=== PATIENT | male | born 1990 | race Caucasian/White ===

== ENCOUNTER 2021-01-12 14:39 | Inpatient (IN) | payer OTHER, SELFPAY ==
[2021-01-12] VITALS (20 sets, daily range): BP systolic 113–141; BP diastolic 65–98; PULSE 51–90; RESP 14–18; TEMP 36.3–37.1; O2SAT 96–100; BMI 25.8; BMI 26.0
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
[2021-01-12] MEDS: Naloxone 2 MG/2 ML Syringe IV (15:00)
--- NOTE | 2021-01-12 15:00 | EKG12_ITS ---
Test Reason : OD Blood Pressure : / mmHG Vent. Rate : 066 BPM Atrial Rate : 066 BPM P-R Int : 158 ms QRS Dur : 102 ms QT Int : 402 ms P-R-T Axes : 061 066 046 degrees QTc Int : 421 ms Normal sinus rhythm Normal ECG Confirmed by JACKELIN BHATIA, DIANA ([id number]), manuscript editor MU GALLOWAY ([id number]) on 01/16/2021 8:59:41 AM Referred By: EMMY/NEGAR Confirmed By:DIANA BENÍTEZ MD
[2021-01-12] MEDS: 0.9% Normal Saline 1,000 ML 999 ML IV (15:18)
[2021-01-12] MEDS: Succinylcholine Chloride 200 MG/10 ML Vial IV (15:20)
[2021-01-12] MEDS: Etomidate 20 MG/10 ML Vial IV (15:20)
[2021-01-12] MEDS: Propofol 10MG/Ml 1,000 MG/100 ML Bottle 4.8 MG CONT INF (15:27)
[2021-01-12] MEDS: fentaNYL 100 MCG/2 ML Ampul 50 MCG IV ×2 (15:34→15:49)
[2021-01-12 15:39] LABS: Absolute Lymphocyte Count 3.56 X10^3/uL (0.83-4.51); Absolute Neutrophil Count 4.7 X10^3/uL (2.0-7.7); Basophil# 0.06 X10^3/uL; Basophil% 0.6 % (0-1); Eosinophils% 2.1 % (0-5); Hematocrit 45.5 % (40-54); Hemoglobin 15.5 g/dL (13.0-16.5); Lymphocyte # 3.56 X10^3/ul (0.83-4.51); Lymphocyte % 36.9 % (19-41); Mean Corp Hgb Conc 34.1 g/dL (32-36); Mean Corpuscular Hgb 30.2 pg (27.0-32.0); Mean Corpuscular Volume 88.7 fL (80-94); Monocyte# 1.12 X10^3/uL; Monocyte% 11.6 % (0-10); NRBC Flagged by Analyzer 0 % (0-5); Neutrophil # 4.67 X10^3/uL (2.7-7.7); Neutrophil % 48.5 % (47-70); Platelet Count 232 K/mm3 (150-450); RBC Distribution Width SD 41.9 fl (35.1-43.9); Red Blood Count 5.13 M/mm3 (4.6-6.2); White Blood Count 9.6 K/mm3 (4.4-11.0)
--- NOTE | 2021-01-12 15:40 | RAD_ITS ---
INDICATION: s/p intubatiuon EXAMINATION/TECHNIQUE: X-RAY - XR Chest 1 View COMPARISON: None. FINDINGS: LIFE-SUPPORT AND LINES: 1. ET tube projects level of the clavicular heads, approximately 7 cm above the josefina. 2. NG tube extends below LEFT hemidiaphragm. 3. No pneumothorax. HEART AND VESSELS: The cardiac silhouette, pulmonary vasculature have normal appearance. No evidence of congestive failure. LUNGS AND PLEURAL SPACES: Lungs are clear. No focal infiltrate, consolidation or effusions. No evidence of pneumothorax. No pulmonary mass is noted. MEDIASTINUM AND HILAR REGIONS: No masses adenopathy noted. No areas of calcification. Visualized upper airway is normal in position. BONY ELEMENTS: No acute bony changes noted. RAD/Chest 1 View (Portable) IMPRESSION: 1. ET tube projects level of clavicular heads, and NG tube is in normal position at projecting below LEFT hemidiaphragm. 2. No pneumothorax. 3. No evidence of acute cardiopulmonary process Electronically Signed: Dimas Stanley MD at 16:09 EST Tel , Service support ,
[2021-01-12] MEDS: Midazolam 2 MG/2 ML Syringe IV ×2 (15:55→17:44)
--- NOTE | 2021-01-12 16:00 | CPS ---
2 ABG ATTEMPTS WERE UNSUCCESSFUL, PATIENT AGITATED, DR AWARE, VBG REQUESTED.
[2021-01-12 16:04] LABS: Mucous, Urine 0 SEEN /hpf (<or=2+); Red Blood Cells-Urine 0 SEEN /hpf (0-5); Squamous Epithelial Cells - UA 0 SEEN /hpf (0-5)
--- NOTE | 2021-01-12 16:04 | ED.RN ---
pt switched to soft restraints post intubation for maintenance of medical devices
[2021-01-12 16:09] LABS: Acetaminophen (Tylenol) Level < 2.0 ug/mL (10.0-30.0); Salicylate 4.4 mg/dL (2.8-20.0)
[2021-01-12 16:10] LABS: Amphetamine Urine VISTA POSITIVE (<1000 ng/mL); Barbiturate Urine VISTA NEGATIVE (< 200 ng/mL); Benzodiazepine Urine VISTA POSITIVE (< 200 ng/mL); Cocaine Urine VISTA NEGATIVE (< 300 ng/mL); Ecstacy Urine VISTA POSITIVE (< 500 ng/mL); Methadone Urine VISTA NEGATIVE (< 300 ng/mL); PCP Urine VISTA NEGATIVE (< 25 ng/mL); THC Urine VISTA POSITIVE (< 50 ng/mL); Vista UDS pH Range 6
[2021-01-12 16:11] LABS: AST(SGOT) 16 U/L (15-37); Alanine Aminotransfer ALT/SGPT 15 U/L (16-61); Albumin, Serum 3.6 g/dL (3.2-5.0); Alkaline Phosphatase 55 U/L (45-117); Anion Gap 6 (5-15); BUN 10 mg/dL (7-18); BUN/Creat Ratio 11.8 RATIO (10-20); Bilirubin, Direct 0.07 mg/dL (0.00-0.30); Calcium,Total 8.8 mg/dL (8.5-10.1); Chloride 106 mmol/L (98-107); Creatinine, Serum 0.84 mg/dL (0.70-1.30); EST Glomerular Filtration Rate 113 mL/min (>60); Est Glom Filt Rate - Afr Amer 136 mL/min (>60); Estimated Creatinine Clearance 128.59 ml/min; Globulin 3.8 g/dL (2.2-4.2); Glucose 92 mg/dL (74-106); Potassium 3.7 mmol/L (3.5-5.1); Protein, Total 7.4 g/dL (6.4-8.2); Sodium Level 139 mmol/L (136-145); Thyroid Stim Hormone (TSH) 2.58 uIU/mL (0.358-3.74)
[2021-01-12 16:12] LABS: Color, Urine Yellow (Yellow); Glucose, Dipstick Normal (Normal); Ketone-Dipstick 5 mg/dl (Negative); Leukocyte Esterase-Dipstick 25 /ul (Negative); Nitrite-Dipstick Negative (Negative); Occult Blood-Urine 25 /ul (Negative); Protein-Dipstick 30 mg/dl (Negative); Urine Bilirubin Dipstick Negative (Negative); Urine Clarity Clear (Clear); Urine Urobilinogen 1 mg/dl (Normal); Urine pH 6.5 (5.0 - 8.0)
--- NOTE | 2021-01-12 16:12 | ED.RN ---
pt father, shahzad, updated on current status
--- NOTE | 2021-01-12 16:13 | ED.RN ---
attempted to contact girlfriend, darshan, no answer.
--- NOTE | 2021-01-12 16:16 | EDS_ITS ---
HPI History of Present Illness Chief Complaint: Overdose Narrative Narrative: Patient is a 30-year-old male who according to family does have a history of illicit drug use. The patient's girlfriend called 911 today secondary to altered mental status. EMS states that they were told that she believes the patient took the rest of her Ativan. She states they are 1 mg pills that she is to take 3 times a day and believes she had approximately 10-12 left. EMS reports the patient was obtunded but breathing. Patient does not offer any further history based on his altered mental status. PFSH PFS Medical History unable to obtain unable to obtain Home Medications Unobtainable 01/12/21 [History Last Taken Unknown] Allergy/AdvReac Type Severity Reaction Status Date / Time No Known Allergies Allergy Verified 01/12/21 16:11 Surgical History unable to obtain Social History Smoking Status: Unknown if ever smoked ROS ROS ED Review of Systems ROS Unobtainable: due to mental status EXAM Physical Exam Const Vital Signs: 01/12/21 14:46 01/12/21 14:55 01/12/21 15:20 Temperature 97.9 F Temperature Source Temporal Pulse Rate 69 65 Respiratory Rate 16 16 Respiratory Effort Agonal Blood Pressure 141/75 H 116/84 H Blood Pressure Mean 97 94 Pulse Ox 100 99 Oxygen Delivery Method Room Air Room Air 01/12/21 15:49 01/12/21 15:51 01/12/21 16:00 Temperature Temperature Source Pulse Rate 75 90 74 Respiratory Rate 16 18 14 Respiratory Effort Blood Pressure 113/81 H 127/92 H 127/92 H Blood Pressure Mean 91 103 103 Pulse Ox 96 100 Oxygen Delivery Method Mechanical Ventilator Mechanical Ventilator 01/12/21 16:02 01/12/21 16:41 Temperature Temperature Source Pulse Rate 69 65 Respiratory Rate 18 14 Respiratory Effort Blood Pressure 127/98 H 128/65 H Blood Pressure Mean 107 86 Pulse Ox 100 100 Oxygen Delivery Method Mechanical Ventilator Mechanical Ventilator Positive well nourished and well developed General Appearance ED: well developed HEENT HEENT Narrative: No signs of depressed or basilar skull fracture Eyes Eyes Narrative: Pupils are midpoint and sluggish to respond to light Neck supple Neck Narrative: No bony deformity or step-off of the cervical spine no meningeal signs Chest Wall palpation of chest normal Resp Resp Narrative: Respirations are very shallow and will become agonal without stimulation. Overall breath sounds are clear. No overt wheezes rales or rhonchi noted Cardio regular rate and regular rhythm GI non-distended and no masses GI Narrative: Bowel sounds are hypoactive Palpation: soft Extremity normal to inspection Neuro Neuro Narrative: Patient is obtunded consistent with overdose. He will briefly wake to sternal rub and then quickly fall back asleep. Gag reflex is minimal. However there is no focal neurologic deficit Psych Mood & Affect: depressed Skin no rashes or lesions noted MDM MDM MDM Narrative Medical decision making narrative: Patient presented to the ER obtunded consistent with reported Ativan overdose. He was given 2 mg of Narcan with concern for a polypharmacy ingestion with no symptom improvement. The patient was awake to painful sternal rub but quickly fall back asleep and then become apneic. He also had minimal gag and was not protecting his airway therefore there was concern for aspiration or suffocation. Secondary to this I did elect to intubate the patient as documented below. Blood work does show multiple illicit drugs consistent with overdose. At this time as he is still requiring mechanical ventilation to protect his airway he will be admitted to the ICU Patient was intubated with the glide scope. He was given 20 mg of etomidate and 120 mg of succinylcholine. The cords were visualized and an 8.0 ET tube was passed with 1 attempt. Confirmation was by color change capnography bilateral breath sounds and fogging in the tube. Patient tolerated procedure well and there were no complications. Lab Data Attestation: I reviewed the patient's lab results. Labs: Laboratory Results - last 24 hr 01/12/21 01/12/21 01/12/21 14:51 14:51 14:51 WBC 9.6 RBC 5.13 Hgb 15.5 Hct 45.5 MCV 88.7 MCH 30.2 MCHC 34.1 RDW Std Deviation 41.9 RDW Coeff of Kendy 13.0 Plt Count 232 MPV 10.0 Immature Gran % (Auto) 0.300 Neut % (Auto) 48.5 Lymph % (Auto) 36.9 Simpson % (Auto) 11.6 H Eos % (Auto) 2.1 Baso % (Auto) 0.6 Absolute Neuts (auto) 4.7 Absolute Lymphs (auto) 3.56 Nucleated RBC % 0 Sodium 139 Potassium 3.7 Chloride 106 Carbon Dioxide 27.0 Anion Gap 6 BUN 10 Creatinine 0.84 Estim Creat Clear Calc 128.59 Est GFR (MDRD) Af Amer 136 Est GFR (MDRD) Non-Af 113 BUN/Creatinine Ratio 11.8 Glucose 92 Calcium 8.8 Total Bilirubin 0.30 Direct Bilirubin 0.07 AST 16 ALT 15 L Alkaline Phosphatase 55 Ammonia Total Protein 7.4 Albumin 3.6 Globulin 3.8 TSH 2.58 Urine Color Urine Clarity Urine pH Ur Specific [place] Urine Protein Urine Glucose (UA) Urine Ketones Urine Occult Blood Urine Nitrite Urine Bilirubin Urine Urobilinogen Ur Leukocyte Esterase Urine RBC Urine WBC Ur Squamous Epith Cells Urine Bacteria Urine Mucus Salicylates 4.4 Urine Opiates Screen Urine Methadone Screen Acetaminophen < 2.0 L Ur Barbiturates Screen Ur Phencyclidine Scrn Ur Amphetamines Screen U Methamphetamin-MDMA U Benzodiazepines Scrn Urine Cocaine Screen U Cannabinoids Screen Ur Drug Screen Comment Ethyl Alcohol 4.0 01/12/21 01/12/21 01/12/21 14:51 14:51 15:40 WBC RBC Hgb Hct MCV MCH MCHC RDW Std Deviation RDW Coeff of Kendy Plt Count MPV Immature Gran % (Auto) Neut % (Auto) Lymph % (Auto) Simpson % (Auto) Eos % (Auto) Baso % (Auto) Absolute Neuts (auto) Absolute Lymphs (auto) Nucleated RBC % Sodium Potassium Chloride Carbon Dioxide Anion Gap BUN Creatinine Estim Creat Clear Calc Est GFR (MDRD) Af Amer Est GFR (MDRD) Non-Af BUN/Creatinine Ratio Glucose Calcium Total Bilirubin Direct Bilirubin AST ALT Alkaline Phosphatase Ammonia 18.0 Total Protein Albumin Globulin TSH Urine Color Yellow Urine Clarity Clear Urine pH 6.5 Ur Specific [place] 1.020 Urine Protein 30 H Urine Glucose (UA) Normal Urine Ketones 5 H Urine Occult Blood 25 H Urine Nitrite Negative Urine Bilirubin Negative Urine Urobilinogen 1 H Ur Leukocyte Esterase 25 H Urine RBC 0 SEEN Urine WBC 0-5 SEEN Ur Squamous Epith Cells 0 SEEN Urine Bacteria RARE Urine Mucus 0 SEEN Salicylates Urine Opiates Screen NEGATIVE Urine Methadone Screen NEGATIVE Acetaminophen Ur Barbiturates Screen NEGATIVE Ur Phencyclidine Scrn NEGATIVE Ur Amphetamines Screen POSITIVE H U Methamphetamin-MDMA POSITIVE H U Benzodiazepines Scrn POSITIVE H Urine Cocaine Screen NEGATIVE U Cannabinoids Screen POSITIVE H Ur Drug Screen Comment Ethyl Alcohol Radiography Diagnostic Testing: Clinical Impression(s) from Imaging Studies Chest X-Ray 01/12/21 15:40 IMPRESSION: 1. ET tube projects level of clavicular heads, and NG tube is in normal position at projecting below LEFT hemidiaphragm. 2. No pneumothorax. 3. No evidence of acute cardiopulmonary process Electronically Signed: Dimas Stanley MD at 16:09 EST Tel , Service support , Critical Care Time Critical Care Time: Yes Critical care time (excluding procedures): - (Please note critical care time of 33 minutes) Discharge Plan Dx/Rx/DC Orders Clinical Impression: Acute respiratory failure, Benzodiazepine overdose Disposition Disposition: Acute Care Hospital [facility]
[2021-01-12 16:27] LABS: Bacteria RARE /hpf (None Seen); White Blood Cells 0-5 SEEN /hpf (0-5)
--- NOTE | 2021-01-12 16:50 | HP.PCM.HOS_ITS ---
HPI - General HPI Narrative ANNIE DORAN, is a 30 M who presents 30-year-old male who presents to the hospital obtunded secondary to overdose of Ativan. It does appear to be intentional according to the girlfriend, she has a prescription for Ativan she had filled it towards the end of November so she thinks there is only about 10 pills left each of about a milligram and strength. When she checked on him the bottle is empty and he was confused. Because of concern for protecting his airway, the ED physician intubated him. [facility] Medical History unable to obtain Home Medications Unobtainable 01/12/21 [History Last Taken Unknown] Allergy/AdvReac Type Severity Reaction Status Date / Time No Known Allergies Allergy Verified 01/12/21 16:11 unable to obtain Surgical History unable to obtain unable to obtain Social History Smoking Status: Unknown if ever smoked ROS Review of Systems ROS Unobtainable: due to endotracheal tube Vital Signs Vital Signs Vital Signs: 01/12/21 14:46 01/12/21 14:55 01/12/21 15:20 Temperature 97.9 F Temperature Source Temporal Pulse Rate 69 65 Respiratory Rate 16 16 Respiratory Effort Agonal Blood Pressure 141/75 H 116/84 H Blood Pressure Mean 97 94 Pulse Ox 100 99 Oxygen Delivery Method Room Air Room Air 01/12/21 15:49 01/12/21 15:51 01/12/21 16:00 Temperature Temperature Source Pulse Rate 75 90 74 Respiratory Rate 16 18 14 Respiratory Effort Blood Pressure 113/81 H 127/92 H 127/92 H Blood Pressure Mean 91 103 103 Pulse Ox 96 100 Oxygen Delivery Method Mechanical Ventilator Mechanical Ventilator 01/12/21 16:02 01/12/21 16:41 Temperature Temperature Source Pulse Rate 69 65 Respiratory Rate 18 14 Respiratory Effort Blood Pressure 127/98 H 128/65 H Blood Pressure Mean 107 86 Pulse Ox 100 100 Oxygen Delivery Method Mechanical Ventilator Mechanical Ventilator Weight Weight: 174 lb 13.225 oz Body Mass Index (BMI) 25.8 Physical Exam Const General Appearance: intubated and patient mechanically ventilated HEENT normocephalic and moist oral mucous membranes Eyes PERRL and conjunctivae normal Neck supple and no JVD Resp normal respiratory effort, no retractions, no use of accessory muscles and clear to auscultation bilaterally Auscultation: Negative for crackles, rales, rhonchi or wheezes Cardio regular rate, regular rhythm, S1 normal heart sound, S2 normal heart sound and no murmurs GI soft to palpation and non-distended; Negative for hepatosplenomegaly Extremity no clubbing, cyanosis or edema Skin no rashes or lesions noted Neuro Sensorium / Orientation: sedated on vent Psych Appearance: intubated Results Lab / Micro Data Result Diagrams: 01/12/21 14:51 01/12/21 14:51 Labs: Laboratory Results - last 24 hr 01/12/21 14:51: WBC 9.6, RBC 5.13, Hgb 15.5, Hct 45.5, MCV 88.7, MCH 30.2, MCHC 34.1, RDW Std Deviation 41.9, RDW Coeff of Kendy 13.0, Plt Count 232, MPV 10.0, Immature Gran % (Auto) 0.300, Neut % (Auto) 48.5, Lymph % (Auto) 36.9, Rogers % (Auto) 11.6 H, Eos % (Auto) 2.1, Baso % (Auto) 0.6, Absolute Neuts (auto) 4.7, Absolute Lymphs (auto) 3.56, Nucleated RBC % 0 01/12/21 14:51: Sodium 139, Potassium 3.7, Chloride 106, Carbon Dioxide 27.0, Anion Gap 6, BUN 10, Creatinine 0.84, Estim Creat Clear Calc 128.59, Est GFR (MDRD) Af Amer 136, Est GFR (MDRD) Non-Af 113, BUN/Creatinine Ratio 11.8, Glucose 92, Calcium 8.8, Total Bilirubin 0.30, Direct Bilirubin 0.07, AST 16, ALT 15 L, Alkaline Phosphatase 55, Total Protein 7.4, Albumin 3.6, Globulin 3.8, TSH 2.58 01/12/21 14:51: Salicylates 4.4, Acetaminophen < 2.0 L, Ethyl Alcohol 4.0 01/12/21 14:51: Urine Opiates Screen NEGATIVE, Urine Methadone Screen NEGATIVE, Ur Barbiturates Screen NEGATIVE, Ur Phencyclidine Scrn NEGATIVE, Ur Amphetamines Screen POSITIVE H, U Methamphetamin-MDMA POSITIVE H, U Benzodiazepines Scrn POSITIVE H, Urine Cocaine Screen NEGATIVE, U Cannabinoids Screen POSITIVE H, Ur Drug Screen Comment 01/12/21 14:51: Urine Color Yellow, Urine Clarity Clear, Urine pH 6.5, Ur Speci fic [place] 1.020, Urine Protein 30 H, Urine Glucose (UA) Normal, Urine Ketones 5 H, Urine Occult Blood 25 H, Urine Nitrite Negative, Urine Bilirubin Negative, Urine Urobilinogen 1 H, Ur Leukocyte Esterase 25 H, Urine RBC 0 SEEN, Urine WBC 0-5 SEEN, Ur Squamous Epith Cells 0 SEEN, Urine Bacteria RARE, Urine Mucus 0 SEEN 01/12/21 15:40: Ammonia 18.0 Micro: Microbiology 01/12/21 14:51 Nasal Secretion SARS-CoV-2 Antigen (Rapid) - Final Radiology Impression Chest X-Ray 01/12/21 15:40 IMPRESSION: 1. ET tube projects level of clavicular heads, and NG tube is in normal position at projecting below LEFT hemidiaphragm. 2. No pneumothorax. 3. No evidence of acute cardiopulmonary process Electronically Signed: Dimas Stanley MD at 16:09 EST Tel , Service support , Assessment & Plan Assessment/Plan (1) Acute respiratory failure: QUALIFIERS: Respiratory failure complication: unspecified whether with hypoxia or hypercapnia Qualified Code(s): J96.00 - Acute respiratory failure, unspecified whether with hypoxia or hypercapnia (2) Benzodiazepine overdose: QUALIFIERS: Encounter type: initial encounter Injury intent: undetermined intent Qualified Code(s): T42.4X4A - Poisoning by benzodiazepines, undetermined, initial encounter PLAN: 1. Acute respiratory failure secondary to benzodiazepine overdose necessitating intubation due to inability to protect his airway/polysubstance abuse ?Unsure if this is a suicide attempt though it does appear likely given the history of with him not being prescribed the benzos and taking all 10 at once ?Continue with propofol and intubation until the benzos are out of his system ?Once he is alert can discuss with him whether or not this was a suicide attempt and have crisis alerted for evaluation and possible psychiatric placement ?Will need to investigate whether or not he chronically takes benzos or if this was a one-time event as this would differentiate the difference between benzodiazepine withdrawal protocols versus just management ?Urine drug screen demonstrates amphetamines and methamphetamines as well as cannabis DVT: Lovenox Charges/Coding Visit Charges Inpatient E&M: 63333 Init Hosp L3
[2021-01-12 17:20] LABS: Blood Gas Specimen Type VEN; O2 Delivery Device Adult Vent; PEEP 5; RR 14; VBG BASE EXCESS 2 mmol/L (-1.0-3.5); VBG Bicarbonate 27 mmol/L (22-26); VBG PO2 24 mmHg (25-40); VBG SO2 40 % (50-70); VBG TCO2 29 mmol/L (23-33); VBG pH 7.36 (7.32-7.42)
--- NOTE | 2021-01-12 17:34 | ED.RN ---
report called to doug
[2021-01-12] MEDS: 0.9% Normal Saline 1,000 ML 100 ML IV (18:40)
[2021-01-12] MEDS: Propofol 10MG/Ml 1,000 MG/100 ML Bottle 16.7 MG CONT INF (18:41)
--- NOTE | 2021-01-12 19:48 | CM.ED ---
SW Note Referral Source: actuarial consultant Reason: Overdose Consult put in for MH due to overdose. However, patient was intubated and transferred to ICU. Patient will need to be referred to [facility] social sciences department chair or Crisis from [facility] when medically stable. Emily SANTACRUZ
[2021-01-13] VITALS (23 sets, daily range): BP systolic 105–145; BP diastolic 68–105; PULSE 46–107; RESP 14–29; TEMP 36.3–38.9; O2SAT 92–100
[2021-01-13] MEDS: Propofol 10MG/Ml 1,000 MG/100 ML Bottle 16.7 MG CONT INF ×2 (00:26→05:46)
[2021-01-13 04:11] LABS: Absolute Lymphocyte Count 2.42 X10^3/uL (0.83-4.51); Absolute Neutrophil Count 4.9 X10^3/uL (2.0-7.7); Basophil# 0.04 X10^3/uL; Basophil% 0.5 % (0-1); Eosinophil# 0.15 X10^3/uL; Eosinophils% 1.8 % (0-5); Hematocrit 41.2 % (40-54); Hemoglobin 14.1 g/dL (13.0-16.5); Lymphocyte # 2.42 X10^3/ul (0.83-4.51); Lymphocyte % 28.9 % (19-41); Mean Corp Hgb Conc 34.2 g/dL (32-36); Mean Corpuscular Hgb 30.5 pg (27.0-32.0); Mean Platelet Vol. 9.8 fl (6.2-12.0); Monocyte# 0.83 X10^3/uL; Monocyte% 9.9 % (0-10); NRBC Flagged by Analyzer 0 % (0-5); Neutrophil # 4.92 X10^3/uL (2.7-7.7); Neutrophil % 58.7 % (47-70); Platelet Count 185 K/mm3 (150-450); RBC Distribution Width CV 13.2 % (11.6-14.6); RBC Distribution Width SD 43.2 fl (35.1-43.9); Red Blood Count 4.63 M/mm3 (4.6-6.2); White Blood Count 8.4 K/mm3 (4.4-11.0)
[2021-01-13] MEDS: 0.9% Normal Saline 1,000 ML 100 ML IV (04:24)
[2021-01-13 04:27] LABS: Anion Gap 5 (5-15); BUN 7 mg/dL (7-18); BUN/Creat Ratio 9.5 RATIO (10-20); Calcium,Total 8.3 mg/dL (8.5-10.1); Chloride 111 mmol/L (98-107); Creatinine, Serum 0.74 mg/dL (0.70-1.30); EST Glomerular Filtration Rate 132 mL/min (>60); Est Glom Filt Rate - Afr Amer 160 mL/min (>60); Estimated Creatinine Clearance 141.22 ml/min; Glucose 74 mg/dL (74-106); Potassium 3.3 mmol/L (3.5-5.1); Sodium Level 140 mmol/L (136-145)
--- NOTE | 2021-01-13 07:37 | EX.PCM.CONCC ---
Assessment & Plan Assessment/Plan (1) Acute respiratory failure: QUALIFIERS: Respiratory failure complication: unspecified whether with hypoxia or hypercapnia Qualified Code(s): J96.00 - Acute respiratory failure, unspecified whether with hypoxia or hypercapnia (2) Benzodiazepine overdose: QUALIFIERS: Encounter type: initial encounter Injury intent: undetermined intent Qualified Code(s): T42.4X4A - Poisoning by benzodiazepines, undetermined, initial encounter PLAN: RECOMMENDATIONS: 1. Transition propofol to Precedex therapy 2. Possibly start tube feeds if remains intubated 3. Add H2 roel. SCD for DVT prophylaxis 4. Supplement potassium 5. Determine intentions of overdose following extubation 6. Monitor for signs or symptoms of withdrawal IMPRESSIONS: 1. Acute respiratory failure secondary to benzodiazepine overdose Patient presented to the ER obtunded following ingestion of 10 to 12 mg of Ativan. Anticipate linear metabolism at these doses. Continue mechanical ventilation for airway protection. Will transition to Precedex therapy as there is some concern for possible withdrawal and difficulty with ability to comply with spontaneous breathing trial. If patient remains intubated overnight, will check a chest x-ray tomorrow for possible aspiration. After extubation, we will have to determine patient's intentions (recreational versus self-harm). 2. Polysubstance abuse/possible refeeding syndrome/poor history Complicates care, management, recovery and prognosis. We will add an H2 roel for GI prophylaxis. Potassium will be supplemented. Patient is initiated on tube feeds, may add thiamine and folate. Unclear if patient has a baseline psychiatric history TIME: 33 minutes critical care time spent addressing patient's acute respiratory failure, Ativan overdose, polysubstance abuse, review of all data and collaboration with care team HPI Consult Data Date of Consult: 01/13/21 HPI Narrative HPI Narrative: ANNIE DORAN, is a 30 M who presents to [facility] on 01/12/2021 following the 911 call from the patient's girlfriend secondary to altered mental status. EMS was reportedly told that the patient had taken 10 to 12 mg of Ativan and was found unresponsive. This medication was reportedly prescribed to his girlfriend. Very little additional history is noted. In the ER, patient was afebrile and saturating well on room air. Patient was initially hypertensive, but respiratory effort was described as agonal. Patient was then intubated for airway protection. Laboratory work-up showed a white blood cell count of 9.6, but additional laboratory work-up was relatively unremarkable. Patient did have a salicylate and alcohol level. Tylenol level was negative. Ammonia was within normal limits. Tox screen showed amphetamines, methamphetamines and cannabinoids, along with a positive benzodiazepine. Chest x-ray showed appropriate tube placement with no complications. The patient was then transferred to the intensive care unit for further evaluation. Overnight, there has been no significant complications. However, during the spontaneous awakening trial patient became very agitated and combative. Patient was physically restrained, but propofol had to be reinitiated. Patient was transitioned to Precedex. [facility] Medical History unable to obtain Home Medications Unobtainable 01/12/21 [History Last Taken Unknown] Allergy/AdvReac Type Severity Reaction Status Date / Time No Known Allergies Allergy Verified 01/12/21 16:11 Family History unable to obtain Surgical History unable to obtain Social History Smoking Status: Unknown if ever smoked ROS Review of Systems ROS Unobtainable: due to encephalopathy and due to endotracheal tube Physical Exam Const Constitutional Narrative: Uncooperative and combative during spontaneous awakening trial. No focal neurologic deficits or seizure activity noted during awakening trial. General Appearance: intubated and patient mechanically ventilated HEENT normocephalic and moist oral mucous membranes Eyes PERRL and conjunctivae normal Neck supple and no JVD Chest inspection of chest normal Chest: symmetrical chest wall rise; Negative for crepitus Resp normal respiratory effort, no retractions, no use of accessory muscles and clear to auscultation bilaterally Auscultation: Negative for crackles, rales, rhonchi or wheezes Cardio regular rate, regular rhythm, S1 normal heart sound, S2 normal heart sound and no murmurs GI soft to palpation and non-distended; Negative for hepatosplenomegaly Extremity no clubbing, cyanosis or edema Skin no rashes or lesions noted Neuro Sensorium / Orientation: sedated on vent Psych Appearance: intubated Lab / Micro Data Result Diagrams: 01/13/21 03:45 01/13/21 03:45 Labs: Laboratory Results - last 24 hr 01/12/21 14:51: WBC 9.6, RBC 5.13, Hgb 15.5, Hct 45.5, MCV 88.7, MCH 30.2, MCHC 34.1, RDW Std Deviation 41.9, RDW Coeff of Kendy 13.0, Plt Count 232, MPV 10.0, Immature Gran % (Auto) 0.300, Neut % (Auto) 48.5, Lymph % (Auto) 36.9, [place] % (Auto) 11.6 H, Eos % (Auto) 2.1, Baso % (Auto) 0.6, Absolute Neuts (auto) 4.7, Absolute Lymphs (auto) 3.56, Nucleated RBC % 0 01/12/21 14:51: Sodium 139, Potassium 3.7, Chloride 106, Carbon Dioxide 27.0, Anion Gap 6, BUN 10, Creatinine 0.84, Estim Creat Clear Calc 128.59, Est GFR (MDRD) Af Amer 136, Est GFR (MDRD) Non-Af 113, BUN/Creatinine Ratio 11.8, Glucose 92, Calcium 8.8, Total Bilirubin 0.30, Direct Bilirubin 0.07, AST 16, ALT 15 L, Alkaline Phosphatase 55, Total Protein 7.4, Albumin 3.6, Globulin 3.8, TSH 2.58 01/12/21 14:51: Salicylates 4.4, Acetaminophen < 2.0 L, Ethyl Alcohol 4.0 01/12/21 14:51: Urine Opiates Screen NEGATIVE, Urine Methadone Screen NEGATIVE, Ur Barbiturates Screen NEGATIVE, Ur Phencyclidine Scrn NEGATIVE, Ur Amphetamines Screen POSITIVE H, U Methamphetamin-MDMA POSITIVE H, U Benzodiazepines Scrn POSITIVE H, Urine Cocaine Screen NEGATIVE, U Cannabinoids Screen POSITIVE H, Ur Drug Screen Comment 01/12/21 14:51: Urine Color Yellow, Urine Clarity Clear, Urine pH 6.5, Ur Specific [place] 1.020, Urine Protein 30 H, Urine Glucose (UA) Normal, Urine Ketones 5 H, Urine Occult Blood 25 H, Urine Nitrite Negative, Urine Bilirubin Negative, Urine Urobilinogen 1 H, Ur Leukocyte Esterase 25 H, Urine RBC 0 SEEN, Urine WBC 0-5 SEEN, Ur Squamous Epith Cells 0 SEEN, Urine Bacteria RARE, Urine Mucus 0 SEEN 01/12/21 15:40: Ammonia 18.0 01/13/21 03:45: WBC 8.4, RBC 4.63, Hgb 14.1, Hct 41.2, MCV 89.0, MCH 30.5, MCHC 34.2, RDW Std Deviation 43.2, RDW Coeff of Kendy 13.2, Plt Count 185, MPV 9.8, Immature Gran % (Auto) 0.200, Neut % (Auto) 58.7, Lymph % (Auto) 28.9, [place] % (Auto) 9.9, Eos % (Auto) 1.8, Baso % (Auto) 0.5, Absolute Neuts (auto) 4.9, Absolute Lymphs (auto) 2.42, Nucleated RBC % 0 01/13/21 03:45: Sodium 140, Potassium 3.3 L, Chloride 111 H, Carbon Dioxide 24.0, Anion Gap 5, BUN 7, Creatinine 0.74, Estim Creat Clear Calc 141.22, Est GFR (MDRD) Af Amer 160, Est GFR (MDRD) Non-Af 132, BUN/Creatinine Ratio 9.5 L, Glucose 74, Calcium 8.3 L Micro: Microbiology 01/12/21 14:51 Nasal Secretion SARS-CoV-2 Antigen (Rapid) - Final ABG Data ABG results: ABG 01/12/21 17:15 Specimen Type RONNY VBG pH 7.36 VBG pO2 24 L VBG HCO3 27 H VBG Total CO2 29 VBG O2 Sat (Calc) 40 L VBG Base Excess 2 POC Mix VBG pCO2 Pt Tmp 48.0 Respiration Rate 14 O2 Delivery Device Adult Vent POC PEEP 5 Radiology Impression Chest X-Ray 01/12/21 15:40 IMPRESSION: 1. ET tube projects level of clavicular heads, and NG tube is in normal position at projecting below LEFT hemidiaphragm. 2. No pneumothorax. 3. No evidence of acute cardiopulmonary process Electronically Signed: Dimas Stanley MD at 16:09 EST Tel , Service support , Charges/Coding Procedures Hospitalists Procedures: 15821 Critial Care 1st Hr
[2021-01-13] MEDS: Haloperidol Lactate 5 MG/ML Vial IV (08:05)
--- NOTE | 2021-01-13 08:25 | NURSING ---
Addendum entered by Maren Fierro 01/13/21 08:34: 0800 stop propofol and fentanyl. prep for extubation Original Note: 0800 pt thrashing about in the bed, 3 GETTERING OPERATOR s, RT Dr.s Grubbs and Avi present in pt room. per order Precedex increased to 1.5mcq/kg/hr 0805 Haldol 5mg given IV push 0810 extubated to RA, pt cont to thrash about bed intermittantly.
--- NOTE | 2021-01-13 09:23 | PCM.PN.HOSP ---
Subjective Subjective Head ears EyesRemains intubated sedation was transitioned from propofol to Precedex and will attempt a spontaneous breathing trial this morning and extubate if possible Objective Data Objective Data Vital Signs: Vital Signs Temp Pulse Resp BP Pulse Ox 97.4 F L 88 20 H 136/91 H 95 01/13/21 04:00 01/13/21 08:10 01/13/21 08:10 01/13/21 06:00 01/13/21 08:10 Oxygen Flow Rate (L/min) 60 Oxygen Delivery Method Room Air Weight: 177 lb 11.081 oz Body Mass Index (BMI) 26.0 Intake & Output: Intake and Output for Last 24 Hours 01/12/21 01/13/21 01/14/21 03:59 03:59 03:59 Intake Total 1228.82 / 1228.82 1477.66 / 1477.66 Output Total 525 / 525 150 / 150 Balance 703.82 / 703.82 1327.66 / 1327.66 Lab / Micro Data Result Diagrams: 01/13/21 03:45 01/13/21 03:45 Labs: Laboratory Results - last 24 hr 01/12/21 14:51: WBC 9.6, RBC 5.13, Hgb 15.5, Hct 45.5, MCV 88.7, MCH 30.2, MCHC 34.1, RDW Std Deviation 41.9, RDW Coeff of Kendy 13.0, Plt Count 232, MPV 10.0, Immature Gran % (Auto) 0.300, Neut % (Auto) 48.5, Lymph % (Auto) 36.9, [place] % (Auto) 11.6 H, Eos % (Auto) 2.1, Baso % (Auto) 0.6, Absolute Neuts (auto) 4.7, Absolute Lymphs (auto) 3.56, Nucleated RBC % 0 01/12/21 14:51: Sodium 139, Potassium 3.7, Chloride 106, Carbon Dioxide 27.0, Anion Gap 6, BUN 10, Creatinine 0.84, Estim Creat Clear Calc 128.59, Est GFR (MDRD) Af Amer 136, Est GFR (MDRD) Non-Af 113, BUN/Creatinine Ratio 11.8, Glucose 92, Calcium 8.8, Total Bilirubin 0.30, Direct Bilirubin 0.07, AST 16, ALT 15 L, Alkaline Phosphatase 55, Total Protein 7.4, Albumin 3.6, Globulin 3.8, TSH 2.58 01/12/21 14:51: Salicylates 4.4, Acetaminophen < 2.0 L, Ethyl Alcohol 4.0 01/12/21 14:51: Urine Opiates Screen NEGATIVE, Urine Methadone Screen NEGATIVE, Ur Barbiturates Screen NEGATIVE, Ur Phencyclidine Scrn NEGATIVE, Ur Amphetamines Screen POSITIVE H, U Methamphetamin-MDMA POSITIVE H, U Benzodiazepines Scrn POSITIVE H, Urine Cocaine Screen NEGATIVE, U Cannabinoids Screen POSITIVE H, Ur Drug Screen Comment 01/12/21 14:51: Urine Color Yellow, Urine Clarity Clear, Urine pH 6.5, Ur Specific [place] 1.020, Urine Protein 30 H, Urine Glucose (UA) Normal, Urine Ketones 5 H, Urine Occult Blood 25 H, Urine Nitrite Negative, Urine Bilirubin Negative, Urine Urobilinogen 1 H, Ur Leukocyte Esterase 25 H, Urine RBC 0 SEEN, Urine WBC 0-5 SEEN, Ur Squamous Epith Cells 0 SEEN, Urine Bacteria RARE, Urine Mucus 0 SEEN 01/12/21 15:40: Ammonia 18.0 01/13/21 03:45: WBC 8.4, RBC 4.63, Hgb 14.1, Hct 41.2, MCV 89.0, MCH 30.5, MCHC 34.2, RDW Std Deviation 43.2, RDW Coeff of Kendy 13.2, Plt Count 185, MPV 9.8, Immature Gran % (Auto) 0.200, Neut % (Auto) 58.7, Lymph % (Auto) 28.9, [place] % (Auto) 9.9, Eos % (Auto) 1.8, Baso % (Auto) 0.5, Absolute Neuts (auto) 4.9, Absolute Lymphs (auto) 2.42, Nucleated RBC % 0 01/13/21 03:45: Sodium 140, Potassium 3.3 L, Chloride 111 H, Carbon Dioxide 24.0, Anion Gap 5, BUN 7, Creatinine 0.74, Estim Creat Clear Calc 141.22, Est GFR (MDRD) Af Amer 160, Est GFR (MDRD) Non-Af 132, BUN/Creatinine Ratio 9.5 L, Glucose 74, Calcium 8.3 L Micro: Microbiology 01/12/21 14:51 Nasal Secretion SARS-CoV-2 Antigen (Rapid) - Final ABG Data ABG results: ABG 01/12/21 17:15 Specimen Type RONNY VBG pH 7.36 VBG pO2 24 L VBG HCO3 27 H VBG Total CO2 29 VBG O2 Sat (Calc) 40 L VBG Base Excess 2 POC Mix VBG pCO2 Pt Tmp 48.0 Respiration Rate 14 O2 Delivery Device Adult Vent POC PEEP 5 Radiography Diagnostic Testing: Radiology Impression Chest X-Ray 01/12/21 15:40 IMPRESSION: 1. ET tube projects level of clavicular heads, and NG tube is in normal position at projecting below LEFT hemidiaphragm. 2. No pneumothorax. 3. No evidence of acute cardiopulmonary process Electronically Signed: Dimas Stanley MD at 16:09 EST Tel , Service support , Physical Exam Const General Appearance: intubated and patient mechanically ventilated HEENT normocephalic and moist oral mucous membranes Eyes PERRL and conjunctivae normal Neck supple and no JVD Resp normal respiratory effort, no retractions, no use of accessory muscles and clear to auscultation bilaterally Auscultation: Negative for crackles, rales, rhonchi or wheezes Cardio regular rate, regular rhythm, S1 normal heart sound, S2 normal heart sound and no murmurs GI soft to palpation and non-distended; Negative for hepatosplenomegaly Extremity no clubbing, cyanosis or edema Skin no rashes or lesions noted Neuro Sensorium / Orientation: sedated on vent Psych Appearance: intubated Assessment & Plan Assessment/Plan (1) Acute respiratory failure: QUALIFIERS: Respiratory failure complication: unspecified whether with hypoxia or hypercapnia Qualified Code(s): J96.00 - Acute respiratory failure, unspecified whether with hypoxia or hypercapnia (2) Benzodiazepine overdose: QUALIFIERS: Encounter type: initial encounter Injury intent: undetermined intent Qualified Code(s): T42.4X4A - Poisoning by benzodiazepines, undetermined, initial encounter PLAN: 1. Acute respiratory failure secondary to benzodiazepine overdose necessitating intubation due to inability to protect his airway/polysubstance abuse ?Unsure if this is a suicide attempt though it does appear likely given the history of with him not being prescribed the benzos and taking all 10 at once ?Continue with propofol and intubation until the benzos are out of his system ?Once he is alert can discuss with him whether or not this was a suicide attempt and have crisis alerted for evaluation and possible psychiatric placement ?Will need to investigate whether or not he chronically takes benzos or if this was a one-time event as this would differentiate the difference between benzodiazepine withdrawal protocols versus just management ?Urine drug screen demonstrates amphetamines and methamphetamines as well as cannabis ?Will try to wean sedation today and perform a spontaneous breathing trial if possible extubate DVT: Lovenox Charges/Coding Visit Charges Inpatient E&M: 41396 Subs Hosp L2
[2021-01-13] MEDS: TITRATION PARAMETER CHANGE 1 EACH IV (10:18)
--- NOTE | 2021-01-13 10:32 | NURSING ---
This RN spoke w/pt's father this am. He states that his son has had suicidal ideation for several weeks. Saying things like everyone would be better without me, I can't take this anymore. He states he has said things like this off and on for years, depending on where he was with drugs at the time. He also states pts girlfriend plays him like a football against all these other guys while they are living together. Disc suicide precautions in place and eval by crisis once pt is AOx3.
--- NOTE | 2021-01-13 10:45 | PCS.PANDOC ---
PANDEMIC DOCUMENTATION INITIATED: Date: 10/02/2020 Time: 190
[2021-01-13] MEDS: Dexmedetomidine 1,000 mcg in 0.9% NS 240 mL 28.2 MCG CONT INF (11:00)
[2021-01-13] MEDS: Potassium Chloride 10mEq/100mL 10 MEQ/100 ML IV.SOLN. 100 MEQ IV BOLUS ×4 (11:57→15:36)
[2021-01-13] MEDS: 0.9% Saline Lock 10 ML Syringe IV (14:52)
--- NOTE | 2021-01-13 17:30 | CASEMGMT ---
SOCIAL WORK Reason for Consult: Overdose Patient has been Katy Slip due to intentional overdose. Attempted to meet with patient as patient was extubated this morning. Patient does not confirm or deny overdose to be with intent to end his life. Patient reports history of marijuana and meth use. Patient reports mental health and states No one listens to me. When asked about suicidal thoughts, patient began to cry and shook head yes. Sitter protocol to remain in place. Crisis to assess once medically cleared. Katy Slip added to chart. Romain Richmond, CATHODIC PROTECTION TECHNICIAN, CARTON FILLING MACHINE OPERATOR
--- NOTE | 2021-01-13 17:32 | PCM.HOSP.N ---
Hospitalist Note Patient attempting to leave despite concerns with recent attempted suicide now that alert and awake. Will place pink slip on chart.
[2021-01-13] MEDS: Acetaminophen 325 MG Tablet 650 MG PO (23:37)
[2021-01-14] VITALS (7 sets, daily range): BP systolic 105–119; BP diastolic 57–67; PULSE 80–92; RESP 18–24; TEMP 36.9–38.6; O2SAT 96–97
[2021-01-14 04:11] LABS: Absolute Lymphocyte Count 2.05 X10^3/uL (0.83-4.51); Basophil# 0.03 X10^3/uL; Basophil% 0.2 % (0-1); Eosinophil# 0.03 X10^3/uL; Eosinophils% 0.2 % (0-5); Hematocrit 41.3 % (40-54); Hemoglobin 14.1 g/dL (13.0-16.5); Lymphocyte # 2.05 X10^3/ul (0.83-4.51); Lymphocyte % 11.1 % (19-41); Mean Corp Hgb Conc 34.1 g/dL (32-36); Mean Corpuscular Hgb 29.9 pg (27.0-32.0); Mean Corpuscular Volume 87.7 fL (80-94); Mean Platelet Vol. 10.1 fl (6.2-12.0); Monocyte# 1.27 X10^3/uL; Monocyte% 6.9 % (0-10); NRBC Flagged by Analyzer 0 % (0-5); Neutrophil # 15.01 X10^3/uL (2.7-7.7); Neutrophil % 81.1 % (47-70); Platelet Count 200 K/mm3 (150-450); RBC Distribution Width CV 12.5 % (11.6-14.6); RBC Distribution Width SD 40.3 fl (35.1-43.9); Red Blood Count 4.71 M/mm3 (4.6-6.2); White Blood Count 18.5 K/mm3 (4.4-11.0)
[2021-01-14 04:36] LABS: Anion Gap 7 (5-15); BUN 7 mg/dL (7-18); BUN/Creat Ratio 8.3 RATIO (10-20); Calcium,Total 8.7 mg/dL (8.5-10.1); Chloride 104 mmol/L (98-107); Creatinine, Serum 0.85 mg/dL (0.70-1.30); EST Glomerular Filtration Rate 113 mL/min (>60); Est Glom Filt Rate - Afr Amer 136 mL/min (>60); Estimated Creatinine Clearance 122.94 ml/min; Glucose 93 mg/dL (74-106); Magnesium 1.9 mg/dL (1.6-2.6); Phosphorus 2.4 mg/dL (2.5-4.9); Potassium 3.7 mmol/L (3.5-5.1); Sodium Level 134 mmol/L (136-145)
[2021-01-14 06:05] LABS: Lactic Acid 0.5 mmol/L (0.4-1.9)
--- NOTE | 2021-01-14 06:35 | PCM.PN.INT ---
Assessment & Plan Assessment/Plan (1) Acute respiratory failure: QUALIFIERS: Respiratory failure complication: unspecified whether with hypoxia or hypercapnia Qualified Code(s): J96.00 - Acute respiratory failure, unspecified whether with hypoxia or hypercapnia (2) Benzodiazepine overdose: QUALIFIERS: Encounter type: initial encounter Injury intent: undetermined intent Qualified Code(s): T42.4X4A - Poisoning by benzodiazepines, undetermined, initial encounter PLAN: RECOMMENDATIONS: 1. Initiate empiric antibiotics 2. Obtain chest x-ray 3. Reinitiate regular diet 4. Okay to leave the intensive care unit from my perspective 5. If remains hemodynamically stable on room air, will likely sign off from a critical care perspective IMPRESSIONS: 1. Acute respiratory failure secondary to benzodiazepine overdose/possible pneumonia Patient presented to the ER obtunded following ingestion of 10 to 12 mg of Ativan. Anticipate linear metabolism at these doses. Continue mechanical ventilation for airway protection. Patient has been extubated and is tolerating room air well. Given fever and leukocytosis, there is significant concern for possible aspiration. Patient will be initiated on Augmentin. Chest x-ray will be ordered. Okay to leave the intensive care unit from my perspective 2. Polysubstance abuse/possible refeeding syndrome/poor history Complicates care, management, recovery and prognosis. Continue H2 roel for GI prophylaxis. Potassium will be supplemented as needed. Reasonable to initiate a multivitamin. Unclear if patient has a baseline psychiatric history Subjective Subjective Patient did well overnight. Precedex was discontinued yesterday afternoon, but around midnight, patient developed a significant fever to 38.9 ?C. Patient is not reporting any pain, but does have a cough. Sitter is at the bedside. Objective Data Objective Data Vital Signs: Vital Signs Temp Pulse Resp BP Pulse Ox 36.9 C 90 18 105/57 L 96 01/14/21 06:00 01/14/21 04:00 01/14/21 04:00 01/14/21 04:00 01/14/21 04:00 Oxygen Flow Rate (L/min) 60 Oxygen Delivery Method Room Air Weight: 79.016 kg Body Mass Index (BMI) 26.0 Intake & Output: Intake and Output for Last 24 Hours 01/12/21 01/13/21 01/14/21 23:59 23:59 23:59 Intake Total 1134.50 / 1139.50 3369.66 / 3369.66 480 / 480 Output Total 175 / 525 1650 / 1950 1100 / 1100 Balance 959.50 / 614.50 1719.66 / 1419.66 -620 / -620 Lab / Micro Data Result Diagrams: 01/14/21 03:45 01/14/21 03:45 Labs: Laboratory Results - last 24 hr 01/14/21 03:45: WBC 18.5 H, RBC 4.71, Hgb 14.1, Hct 41.3, MCV 87.7, MCH 29.9, MCHC 34.1, RDW Std Deviation 40.3, RDW Coeff of Kendy 12.5, Plt Count 200, MPV 10.1, Immature Gran % (Auto) 0.500, Neut % (Auto) 81.1 H, Lymph % (Auto) 11.1 L, [place] % (Auto) 6.9, Eos % (Auto) 0.2, Baso % (Auto) 0.2, Absolute Neuts (auto) 15.0 H, Absolute Lymphs (auto) 2.05, Nucleated RBC % 0 01/14/21 03:45: Sodium 134 L, Potassium 3.7, Chloride 104, Carbon Dioxide 23.0, Anion Gap 7, BUN 7, Creatinine 0.85, Estim Creat Clear Calc 122.94, Est GFR (MDRD) Af Amer 136, Est GFR (MDRD) Non-Af 113, BUN/Creatinine Ratio 8.3 L, Glucose 93, Calcium 8.7, Phosphorus 2.4 L, Magnesium 1.9 01/14/21 05:30: Lactic Acid 0.5 Micro: Microbiology 01/14/21 03:30 Nasal Secretion SARS-CoV-2 Antigen (Rapid) - Final 01/12/21 15:50 Sputum, Induced/Lukens Gram Stain - Final 01/12/21 15:50 Sputum, Induced/Lukens Respiratory Culture - Preliminary Appears to be normal respiratory nelly. Further studies to follow. 01/12/21 14:51 Nasal Secretion SARS-CoV-2 Antigen (Rapid) - Final Physical Exam Const alert, oriented x3 and no apparent distress Constitutional Narrative: Minimally cooperative HEENT normocephalic and moist oral mucous membranes Eyes PERRL and conjunctivae normal Neck supple and no JVD Chest inspection of chest normal Chest: symmetrical chest wall rise; Negative for crepitus Resp normal respiratory effort, no retractions, no use of accessory muscles and clear to auscultation bilaterally Auscultation: Negative for crackles, rales, rhonchi or wheezes Cardio regular rate, regular rhythm, S1 normal heart sound, S2 normal heart sound and no murmurs GI soft to palpation and non-distended; Negative for hepatosplenomegaly Extremity no clubbing, cyanosis or edema Skin no rashes or lesions noted Neuro oriented x3, CN's II-XII intact bilaterally, moves all extremities and no focal motor deficits Psych Activity / Motor Behavior: avoids eye contact Mood & Affect: flat affect Charges/Coding Visit Charges Inpatient E&M: 02182 Subs Hosp L2
--- NOTE | 2021-01-14 06:40 | RAD_ITS ---
HISTORY: Concern for aspiration PNA, fever. TECHNIQUE: XR Chest 1 View. EXAM TIME: 2021-01-14 06:32. # of images incl. paperwork: 1. COMPARISON:01/12/2021. FINDINGS: LINES/DEVICES: None. CARDIOMEDIASTINAL BORDERS: Stable. LUNGS: Mild left basilar opacity. PLEURA: No pleural effusion or pneumothorax. RAD/Chest 1 View (Portable) IMPRESSION: Mild left basilar atelectasis or pneumonia post extubation. at 0825 Reported and signed by: Amanda Bliss MD Electronically Signed: Amanda Bliss MD at 8:24 EST Tel , Service support ,
[2021-01-14] MEDS: Amox/Clavulanate 500 MG Tablet PO ×2 (07:56→12:27)
[2021-01-14 10:15] LABS: Bacteria 0 SEEN /hpf (None Seen); Mucous, Urine 0 SEEN /hpf (<or=2+); Red Blood Cells-Urine 0 SEEN /hpf (0-5); Squamous Epithelial Cells - UA 0 SEEN /hpf (0-5)
[2021-01-14 10:16] LABS: Color, Urine Yellow (Yellow); Glucose, Dipstick Normal (Normal); Ketone-Dipstick Negative (Negative); Leukocyte Esterase-Dipstick 25 /ul (Negative); Nitrite-Dipstick Negative (Negative); Occult Blood-Urine 50 /ul (Negative); Protein-Dipstick Negative (Negative); Urine Bilirubin Dipstick Negative (Negative); Urine Clarity Clear (Clear); Urine Urobilinogen 1 mg/dl (Normal); Urine pH 6.5 (5.0 - 8.0)
[2021-01-14 10:42] LABS: White Blood Cells 0-5 SEEN /hpf (0-5)
--- NOTE | 2021-01-14 11:40 | PN.HOSP_ITS ---
Subjective Subjective May have aspirated a little bit last night, started on p.o. Augmentin Objective Data Objective Data Vital Signs: Vital Signs Temp Pulse Resp BP Pulse Ox 98.5 F 80 18 109/67 97 01/14/21 08:00 01/14/21 08:37 01/14/21 08:00 01/14/21 08:00 01/14/21 08:00 Oxygen Flow Rate (L/min) 60 Oxygen Delivery Method Room Air Weight: 174 lb 3.2 oz Body Mass Index (BMI) 26.0 Intake & Output: Intake and Output for Last 24 Hours 01/13/21 01/14/21 01/15/21 03:59 03:59 03:59 Intake Total 1228.82 / 1228.82 3275.34 / 3275.34 1240 / 1240 Output Total 525 / 525 1600 / 1600 1999 / 1999 Balance 703.82 / 703.82 1675.34 / 1675.34 -760 / -760 Lab / Micro Data Result Diagrams: 01/14/21 03:45 01/14/21 03:45 Labs: Laboratory Results - last 24 hr 01/14/21 03:45: WBC 18.5 H, RBC 4.71, Hgb 14.1, Hct 41.3, MCV 87.7, MCH 29.9, MCHC 34.1, RDW Std Deviation 40.3, RDW Coeff of Kendy 12.5, Plt Count 200, MPV 10.1, Immature Gran % (Auto) 0.500, Neut % (Auto) 81.1 H, Lymph % (Auto) 11.1 L, [place] % (Auto) 6.9, Eos % (Auto) 0.2, Baso % (Auto) 0.2, Absolute Neuts (auto) 15.0 H, Absolute Lymphs (auto) 2.05, Nucleated RBC % 0 01/14/21 03:45: Sodium 134 L, Potassium 3.7, Chloride 104, Carbon Dioxide 23.0, Anion Gap 7, BUN 7, Creatinine 0.85, Estim Creat Clear Calc 122.94, Est GFR (MDRD) Af Amer 136, Est GFR (MDRD) Non-Af 113, BUN/Creatinine Ratio 8.3 L, Glucose 93, Calcium 8.7, Phosphorus 2.4 L, Magnesium 1.9 01/14/21 05:30: Lactic Acid 0.5 01/14/21 10:00: Urine Color Yellow, Urine Clarity Clear, Urine pH 6.5, Ur Specific [place] 1.010, Urine Protein Negative, Urine Glucose (UA) Normal, Urine Ketones Negative, Urine Occult Blood 50 H, Urine Nitrite Negative, Urine Bilirubin Negative, Urine Urobilinogen 1 H, Ur Leukocyte Esterase 25 H, Urine RBC 0 SEEN, Urine WBC 0-5 SEEN, Ur Squamous Epith Cells 0 SEEN, Urine Bacteria 0 SEEN, Urine Mucus 0 SEEN Micro: Microbiology 01/14/21 03:30 Nasal Secretion SARS-CoV-2 Antigen (Rapid) - Final 01/12/21 15:50 Sputum, Induced/Lukens Gram Stain - Final 01/12/21 15:50 Sputum, Induced/Lukens Respiratory Culture - Preliminary Appears to be normal respiratory nelly. Further studies to follow. 01/12/21 14:51 Nasal Secretion SARS-CoV-2 Antigen (Rapid) - Final Radiography Diagnostic Testing: Radiology Impression Chest X-Ray 01/14/21 06:40 IMPRESSION: Mild left basilar atelectasis or pneumonia post extubation. at 0825 Reported and signed by: Amanda Bliss MD Electronically Signed: Amanda Bliss MD at 8:24 EST Tel , Service support , Physical Exam Const alert, oriented x3 and no apparent distress HEENT normocephalic and moist oral mucous membranes Eyes PERRL, EOMs intact bilaterally and conjunctivae normal Neck supple and no JVD Resp normal respiratory effort, no retractions, no use of accessory muscles and clear to auscultation bilaterally Auscultation: Negative for crackles, rales, rhonchi or wheezes Cardio regular rate, regular rhythm, S1 normal heart sound, S2 normal heart sound and no murmurs GI soft to palpation, non-tender and non-distended; Negative for hepatosplenomegaly Extremity no clubbing, cyanosis or edema Skin no rashes or lesions noted Neuro no focal motor deficits and no sensory deficits noted Psych Mood & Affect: flat affect Assessment & Plan Assessment/Plan (1) Acute respiratory failure: QUALIFIERS: Respiratory failure complication: unspecified whether with hypoxia or hypercapnia Qualified Code(s): J96.00 - Acute respiratory failure, unspecified whether with hypoxia or hypercapnia (2) Benzodiazepine overdose: QUALIFIERS: Encounter type: initial encounter Injury intent: undetermined intent Qualified Code(s): T42.4X4A - Poisoning by benzodiazepines, undetermined, initial encounter PLAN: 1. Acute respiratory failure secondary to benzodiazepine overdose necessitating intubation due to inability to protect his airway/polysubstance abuse ?Extubated and doing well ?We will have crisis see him secondary to the suicide attempt ?Will need to investigate whether or not he chronically takes benzos or if this was a one-time event as this would differentiate the difference between benzodiazepine withdrawal protocols versus just management ?Urine drug screen demonstrates amphetamines and methamphetamines as well as cannabis ?Possible aspiration continue with Augmentin, but he is still medically stable for transfer to mental health facility DVT: [place] Charges/Coding Visit Charges Inpatient E&M: 61068 Subs Hosp L2
--- NOTE | 2021-01-14 12:31 | PCM.DC ---
Discharge Instructions Diet Discharge Diet: No restrictions Activity Discharge Activity: Return to Normal Activity Dressing / Incision Call your doctor if you observe: Fever of 101 or Higher, Shortness of breath, Dizziness, Fainting spells, Swelling in the ankles, Chest pain and Increased palpitations (irregular heartbeat) Follow Up Care Test Results: Test results from this visit will be discussed in further detail at your follow-up appointment, if applicable. Discharge Plan Admission Admit Date/Time: 01/12/21 16:41 Attending Provider: Suman Cárdenas Primary Care Provider: Care Physician,No Primary Consulting Providers: Glenn Grubbs ; Robert Taylor ; Rosalina Marte NP Discharge Orders/Prescriptions Prescriptions: New amoxicillin-pot clavulanate 500-125 mg Tablet 500 mg PO TIDCM Qty: 0 RF: 0 Referrals / Follow Up: Care Physician,No Primary [Primary Care Provider] - Disposition Disposition (needs filled in before D/C Order can be placed): [facility] Unit
--- NOTE | 2021-01-14 12:33 | PCM.DC.SUM ---
Providers Date of Admission: 01/12/21 Primary Care Physician: No Primary Care Phys Consultations 01/13/21 07:42 Consult: [employer] / Pulmonary Medicine Routine Consulting Provider: Pulmonary Medicine hugh Chapa Reason for Consult: icu needs EMERGENT Consult: Yes MD Notified: Yes Date Notified: 01/13/21 Time Notified: 07:42 Method of Notification: Verbal Method of Consult:: In-Person Reason For Visit: BENZO OVERDOSE Diagnosis Discharge Diagnosis (1) Acute respiratory failure: Status: Acute Code(s): J96.00 - Acute respiratory failure, unspecified whether with hypoxia or hypercapnia Qualifiers: Respiratory failure complication: unspecified whether with hypoxia or hypercapnia Qualified Code(s): J96.00 - Acute respiratory failure, unspecified whether with hypoxia or hypercapnia (2) Benzodiazepine overdose: Status: Acute Code(s): T42.4X1A - Poisoning by benzodiazepines, accidental (unintentional), initial encounter Qualifiers: Encounter type: initial encounter Injury intent: undetermined intent Qualified Code(s): T42.4X4A - Poisoning by benzodiazepines, undetermined, initial encounter Medications at Discharge Home Medications amoxicillin-pot clavulanate 500 mg PO TIDCM #0 tab 01/14/21 Hospital Course Operations None Procedures None Summary of Care Provided Minutes Spent on Discharge: 40 Hospital Course: Per HPI: ANNIE DORAN, is a 30 M who presents 30-year-old male who presents to the hospital obtunded secondary to overdose of Ativan. It does appear to be intentional according to the girlfriend, she has a prescription for Ativan she had filled it towards the end of November so she thinks there is only about 10 pills left each of about a milligram and strength. When she checked on him the bottle is empty and he was confused. Because of concern for protecting his airway, the ED physician intubated him. Hospital Course: 1. Acute respiratory failure secondary to benzodiazepine overdose necessitating intubation due to inability to protect his airway/polysubstance abuse/possible aspiration ?Extubated and doing well ?We will have crisis see him secondary to the suicide attempt ?Will need to investigate whether or not he chronically takes benzos or if this was a one-time event as this would differentiate the difference between benzodiazepine withdrawal protocols versus just management ?Urine drug screen demonstrates amphetamines and methamphetamines as well as cannabis 01/14/2021: Possible aspiration continue with Augmentin for 7 more days, but he is still medically stable for transfer to mental health facility. We will plan for discharge today from the psychiatric hospital secondary to his suicide attempt with benzodiazepine overdose. Weight / BMI Weight Weight: 174 lb 3.2 oz Body Mass Index (BMI) 26.0 ABG / Lab / Microbiology Data Result Diagrams: 01/14/21 03:45 01/14/21 03:45 Laboratory: Laboratory Results - last 24 hr 01/14/21 03:45: WBC 18.5 H, RBC 4.71, Hgb 14.1, Hct 41.3, MCV 87.7, MCH 29.9, MCHC 34.1, RDW Std Deviation 40.3, RDW Coeff of Kendy 12.5, Plt Count 200, MPV 10.1, Immature Gran % (Auto) 0.500, Neut % (Auto) 81.1 H, Lymph % (Auto) 11.1 L, Green % (Auto) 6.9, Eos % (Auto) 0.2, Baso % (Auto) 0.2, Absolute Neuts (auto) 15.0 H, Absolute Lymphs (auto) 2.05, Nucleated RBC % 0 01/14/21 03:45: Sodium 134 L, Potassium 3.7, Chloride 104, Carbon Dioxide 23.0, Anion Gap 7, BUN 7, Creatinine 0.85, Estim Creat Clear Calc 122.94, Est GFR (MDRD) Af Amer 136, Est GFR (MDRD) Non-Af 113, BUN/Creatinine Ratio 8.3 L, Glucose 93, Calcium 8.7, Phosphorus 2.4 L, Magnesium 1.9 01/14/21 05:30: Lactic Acid 0.5 01/14/21 10:00: Urine Color Yellow, Urine Clarity Clear, Urine pH 6.5, Ur Specific [place] 1.010, Urine Protein Negative, Urine Glucose (UA) Normal, Urine Ketones Negative, Urine Occult Blood 50 H, Urine Nitrite Negative, Urine Bilirubin Negative, Urine Urobilinogen 1 H, Ur Leukocyte Esterase 25 H, Urine RBC 0 SEEN, Urine WBC 0-5 SEEN, Ur Squamous Epith Cells 0 SEEN, Urine Bacteria 0 SEEN, Urine Mucus 0 SEEN Microbiology: Microbiology 01/14/21 03:30 Nasal Secretion SARS-CoV-2 Antigen (Rapid) - Final 01/12/21 15:50 Sputum, Induced/[place]ukens Gram Stain - Final 01/12/21 15:50 Sputum, Induced/[place] Respiratory Culture - Preliminary Appears to be normal respiratory nelly. Further studies to follow. 01/12/21 14:51 Nasal Secretion SARS-CoV-2 Antigen (Rapid) - Final Radiography Diagnostic Testing: Radiology Impression Chest X-Ray 01/14/21 06:40 IMPRESSION: Mild left basilar atelectasis or pneumonia post extubation. at 0825 Reported and signed by: Amanda Bliss MD Electronically Signed: Amanda Bliss MD at 8:24 EST Tel , Service support , D/C Instructions Discharge Diet: No restrictions Call your doctor if you observe: Fever of 101 or Higher, Shortness of breath, Dizziness, Fainting spells, Swelling in the ankles, Chest pain and Increased palpitations (irregular heartbeat) Meaningful Use Info Meaningful Use Diagnoses (Choose all that apply): None applicable Discharge Plan Admission Admit Date/Time: 01/12/21 16:41 Attending Provider: Suman Cárdenas Primary Care Provider: Care Physician,No Primary Consulting Providers: Glenn Grubbs ; Robert Taylor ; Rosalina Marte [employer] Discharge Orders/Prescriptions Prescriptions: New amoxicillin-pot clavulanate 500-125 mg Tablet 500 mg PO TIDCM Qty: 0 RF: 0 Referrals / Follow Up: Care Physician,No Primary [Primary Care Provider] - Disposition Disposition (needs filled in before D/C Order can be placed): Psychiatric Hospital or Unit Charges/Coding Visit Charges Inpatient E&M: 98177 Disch Hosp
== END 2021-01-14 13:23 | DRG 917 ==
LOC: ED 17:04 → ICU 17:14
PROVIDERS: Hospitalist; Internal Medicine Critical Care Medicine; Admitting Provider Family Medicine; Emergency Provider Emergency Medicine; Visit Provider Family Medicine
DX: T42.4X2A Poisoning by benzodiazepines, intentional self-harm, initial encounter (principal); J96.00 Acute respiratory failure, unspecified whether with hypoxia or hypercapnia; R41.82 Altered mental status, unspecified; T17.918A Gastric contents in respiratory tract, part unspecified causing other injury, initial encounter; X58.XXXA Exposure to other specified factors, initial encounter; F15.10 Other stimulant abuse, uncomplicated; F12.10 Cannabis abuse, uncomplicated; Z78.1 Physical restraint status
CPT/HCPCS: 31500; 31720; 51702; 71045; 80048; 80076; 80307; 80329; 81001; 82077; 82140; 82803; 83605; 83735; 84100; 84443; 85025; 87040; 87070; 87086; 87205; 87426; 93005; 94002; 94003; 97802; 99251; 99285; J7030; J7050; A4216; G0463; G0480; J3010